=== PATIENT | female | born 1935 | race Caucasian/White ===

== ENCOUNTER 2017-08-31 07:08 | Outpatient (CLI) | payer MEDICARE ==
[~2017-08-31] VITALS: Ht 162.6 cm; Wt 77.3 kg
[~2017-08-31 07:08] MED LIST: BAYER CHEWABLE81 MG PO; BETAPACE 80 MG80 MG PO; CALCIUM 600+D T1 TA1 PO; COZAAR100 MG PO; EFFIENT10 MG PO; FISH OIL 1,2001 CAP PO; IMDUR30 MG PO; LOVENOX80 MG/0.8 SC; NORVASC5 MG PO; PLAVIX75 MG PO; PROVENTIL HFA6.7 GM INH; VITAMIN D31000 UNI2 PO; ZIAC 2.5/6.25 M1 TAB PO; ZIAC 5-6.25 MG1 TAB PO
[2017-08-31 08:33] LABS: BASOPHILS 0.2 % (0-2); EOSINOPHILS 1.2 % (0-7); HEMATOCRIT 38.6 % (36.0-48.0); HEMOGLOBIN 12.7 g/dL (12-16); IMMATURE GRANULOCYTES 0.7 % (0-5); LYMPHOCYTES 15.7 % (15-50); MCH 28.8 pg (26.0-34.0); MCHC 32.9 g/dL (31.0-37.0); MCV 87.5 fL (80.0-100.0); MEAN PLATELET VOLUME 10.1 fL (7.4-10.4); MONOCYTES 7.2 % (2-11); PLATELET COUNT 184 10x3/uL (130-400); RBC 4.41 10x6/uL (4.00-5.40); WBC 9.2 10x3/uL (4.8-10.8)
[2017-08-31] MEDS ORDERED: GLUCOSAMINE & C1 CAP PO (08:33)
[2017-08-31] MEDS ORDERED: PREDNISONE10 MG PO (08:33)
[2017-08-31 08:42] VITALS: BP 126/72; Ht 162.6 cm; Wt 77.3 kg
[2017-08-31 08:50] LABS: ANION GAP 10.5 mmol/L (8-16); CARBON DIOXIDE 29.1 mmol/L (21.0-32.0); CREATININE - SERUM 0.8 mg/dL (0.6-1.3); POTASSIUM - SERUM 3.6 mmol/L (3.5-5.1)
[2017-08-31 08:51] LABS: APTT 23.3 SECONDS (22.8-39.4); INR 1.07 (0.85-1.17); PROTIME 13.5 SECONDS (11.6-15.0)
--- NOTE | 2017-08-31 14:55 | NUR ---
1015--ALL VITAL SIGNS CHARTED ON POST PROCEDURE VITAL SIGN SHEET ON CHART. JACKY FITCH 1400--RADIOLOGY READING ROOM CALLED, PT HAS NO PNEUMO. IV DC'D. JACKY FITCH 1410--DISCHARGE INSTRUCTIONS GIVEN, PT VERBALIZES UNDERSTANDING. PT OFF UNIT VIA WC. JACKY FITCH
== END 2017-08-31 14:15 | disposition home or self-care (01) ==
LOC: D.OPS 07:08
PROVIDERS: Radiology Diagnostic Radiology
DX: C50.411 Malignant neoplasm of upper-outer quadrant of right female breast (principal); Z01.812 Encounter for preprocedural laboratory examination

== ENCOUNTER → 2017-10-28 07:39 | Outpatient (CLI) | payer MEDICARE ==
[2017-08-31 08:42] VITALS: BMI 29.2
[~2017-10-28 07:39] MED LIST changes: +GLUCOSAMINE & C1 CAP PO; +PREDNISONE10 MG PO
== END | disposition home or self-care (01) ==
LOC: D.CT 07:39
DX: C50.411 Malignant neoplasm of upper-outer quadrant of right female breast (principal)

== ENCOUNTER 2017-11-09 05:29 | Outpatient (CLI) | payer MEDICARE ==
[~2017-11-09] VITALS: Ht 162.6 cm; Wt 77.3 kg
[2017-11-09 07:06] VITALS: Ht 162.6 cm; Wt 77.3 kg
[2017-11-09 07:30] LABS: BASOPHILS 0.3 % (0-2); EOSINOPHILS 1.8 % (0-7); HEMATOCRIT 37.1 % (36.0-48.0); HEMOGLOBIN 11.9 g/dL (12-16); IMMATURE GRANULOCYTES 0.5 % (0-5); LYMPHOCYTES 18.3 % (15-50); MCH 28.4 pg (26.0-34.0); MCHC 32.1 g/dL (31.0-37.0); MCV 88.5 fL (80.0-100.0); MEAN PLATELET VOLUME 10.5 fL (7.4-10.4); NEUTROPHILS 72.1 % (40-80); PLATELET COUNT 183 10x3/uL (130-400); RBC 4.19 10x6/uL (4.00-5.40); RDW 14.7 % (11.5-14.5)
[2017-11-09 07:45] LABS: ANION GAP 14.9 mmol/L (8-16); CALCIUM 8.8 mg/dL (8.5-10.1); CARBON DIOXIDE 27.1 mmol/L (21.0-32.0); CREATININE - SERUM 0.8 mg/dL (0.6-1.3)
[2017-11-09 07:50] LABS: INR 1.01 (0.85-1.17); PROTIME 12.9 SECONDS (11.6-15.0)
== END 2017-11-09 13:30 | disposition home or self-care (01) ==
LOC: D.OPS 05:29 → D.SP 08:00 → D.OPS 08:00
PROVIDERS: Radiology Diagnostic Radiology
DX: R91.8 Other nonspecific abnormal finding of lung field (principal); C50.919 Malignant neoplasm of unspecified site of unspecified female breast; Z01.812 Encounter for preprocedural laboratory examination

== ENCOUNTER → 2018-01-30 08:42 | Outpatient (CLI) | payer MEDICARE ==
[2017-11-09 07:06] VITALS: BMI 29.2
== END | disposition home or self-care (01) ==
LOC: D.CT 08:42
DX: C50.511 Malignant neoplasm of lower-outer quadrant of right female breast (principal)

== ENCOUNTER → 2018-09-22 09:31 | Outpatient (CLI) | payer MEDICARE ==
[2017-11-09 07:06] VITALS: BMI 29.2
== END | disposition home or self-care (01) ==
LOC: D.CT 09:31
DX: C50.511 Malignant neoplasm of lower-outer quadrant of right female breast (principal)

== ENCOUNTER → 2019-03-28 15:33 | Outpatient (CLI) | payer MEDICARE ==
[2017-11-09 07:06] VITALS: BMI 29.2
== END | disposition home or self-care (01) ==
LOC: D.RAD 15:33
PROVIDERS: ATTEND Internal Medicine Medical Oncology
DX: C50.511 Malignant neoplasm of lower-outer quadrant of right female breast (principal)

== ENCOUNTER → 2019-06-18 12:12 | Outpatient (CLI) | payer MEDICARE ==
[2017-11-09 07:06] VITALS: BMI 29.2
--- NOTE | 2019-06-28 13:30 | ST ---
PATIENT:FREDY PATEL MEDICAL RECORD: [id number] SEX: F LOCATION:[facility] ORDER #: ADMISSION DATE: 06/18/19 AGE OF PATIENT: 83 REFERRING PHYSICIAN: INTERPRETING PHYSICIAN: KAITLIN ALTAMIRANO MD DATE OF SERVICE: 06/18/2019 PROCEDURE: Nuclear stress test. INDICATIONS: Angina, coronary artery disease, syncope, hypertension, hyperlipidemia. She was exercised on standard Lexiscan protocol with 33 mCi of sestamibi injected at peak stress, 10 mCi used previously for rest images. FINDINGS: Gated SPECT reveals preserved ejection fraction at 74% with good wall motion and thickening and brightening throughout all segments. SPECT imaging: Cardiolite was used as myocardial perfusion agent. There is homogeneous uptake throughout all segments at rest and stress with no evidence of inducible ischemia or previous infarction. OVERALL IMPRESSION: 1. This is a normal nuclear stress test with no evidence of inducible ischemia or previous infarction. 2. Gated SPECT reveals a preserved ejection fraction at 74%. In this patient with ongoing symptomatology, the current scan does not suggest the presence of hemodynamically significant coronary artery disease. Evaluate noncardiac etiology of chest pain. TRANSINT:[id number] Voice Confirmation ID: [id number] DOCUMENT ID: [id number] KAITLIN ALTAMIRANO MD at 1330 CC: SYL MONTES [id number] DICTATION DATE: 06/20/19 1206 PLANE TENDER: 06/21/19 0700 DEP CLI 06/18/19 [facility] [address] [place] [address]
== END | disposition home or self-care (01) ==
LOC: D.HCCARDIO 12:12
PROVIDERS: ATTEND Internal Medicine Interventional Cardiology
DX: I25.10 Atherosclerotic heart disease of native coronary artery without angina pectoris (principal)

== ENCOUNTER → 2019-06-20 12:10 | Outpatient (CLI) | payer MEDICARE ==
[2017-11-09 07:06] VITALS: BMI 29.2
--- NOTE | 2019-06-28 13:30 | EC ---
PATIENT:FREDY PATEL DATE OF SERVICE: 06/20/19 SEX: F MEDICAL RECORD: [id number] DATE OF : 39 LOCATION:[facility] AGE OF PATIENT: 83 ADMISSION DATE: 06/20/19 REFERRING PHYSICIAN: INTERPRETING PHYSICIAN: KAITLIN BRANDON MD ECHOCARDIOGRAM REPORT ECHO CHARGES 4 ECHO COMPLETE Date: 06/20/19 CLINICAL DIAGNOSIS: SYNCOPE/ANGINA H/O CAD/HTN ECHOCARDIOGRAPHIC MEASUREMENTS (adult normal given) AC root (d.<3.7cm) 2.7 cm LV Septum d (<1.2 cm> 1.0 cm Valve Excursion 1.5 cm LV Septum (systole) 1.4 cm Left Atria (s.<4.0cm> 4.5 cm LVPW d(<1.2cm) 0.9 cm RV (d.<2.3cm) 3.4 cm LVPW (sytole) 1.7 cm LV diastole(<5.6CM) 6.3 cm MV E-F(>70mm/sec) cm LV systole 4.0 cm LVOT Diameter 1.6 cm MV exc.(>10mm) cm Est.ejection fraction (50-75%) % DOPPLER: LVIT cm/sec A 112 cm/sec E 78.0 cm/sec LA cm/sec RVSP 51.0 mmHg LVOT 121 cm/sec AOP1/2T m/s Asc. Ao 171 cm/sec RVOT 54.0 cm/sec RA cm/sec PA 109 cm/sec AV Gradient Peak 12.0 mmHg AV Mean 6.0 mmHg AV Area 1.6 cm MV Gradient Peak 6.0 mmHg MV Mean 2.0 mmHg MV Area cm COMMENTS: OP - HC Box Office Manager: Emeterio PENGOE Quality Rep: 1 Dr. Brandon TAPE# PACS Pericardial Effusion N DATE OF SERVICE: 06/20/2019 RESULTS: 1. Left ventricular chamber size is mildly dilated. Left ventricular systolic function is preserved at 55% to 60%. 2. Left atrium is large at 4.5 cm. Right atrium and right ventricle chamber sizes are as well mildly dilated. 3. Valvular structures have normal structure and motion. 4. Doppler interrogation reveals wrfx-tf-ghtyjahq mitral regurgitation, moderate tricuspid regurgitation, no other valvular insufficiency or stenosis. ECHOCARDIOGRAM REPORT [id number] FREDY PATEL Pulmonary systolic pressure is mildly elevated, estimated at 51 mmHg. 5. No evidence of pericardial effusion or left ventricular thrombus. TRANSINT:[id number] Voice Confirmation ID: [id number] DOCUMENT ID: [id number] KAITLIN BRANDON MD at 1330 CC: [id number] DICTATION DATE: 06/20/19 1509 ORE BUYER: 06/20/19 2346 DEP CLI 06/20/19 [id number] [place] [address]
== END | disposition home or self-care (01) ==
LOC: D.HCCECHO 12:10
PROVIDERS: ATTEND Internal Medicine Interventional Cardiology
DX: I25.10 Atherosclerotic heart disease of native coronary artery without angina pectoris (principal)

== ENCOUNTER 2020-12-07 09:20 | Inpatient (IN) | payer MEDICARE ==
[2020-12-07] VITALS (15 sets, daily range): BP systolic 53–150; BP diastolic 31–89; BMI 28.9
[~2020-12-07] VITALS: Ht 162.6 cm; Wt 76.2 kg
[~2020-12-07 09:20] MED LIST changes: -IMDUR30 MG PO; +ISOSORBIDE MONO30 M1 PO
[2020-12-07 09:43] LABS: BASOPHILS 0.1 % (0-2); EOSINOPHILS 1.2 % (0-7); HEMATOCRIT 39.5 % (36.0-48.0); HEMOGLOBIN 13.3 g/dL (12-16); IMMATURE GRANULOCYTES 0.3 % (0-5); LYMPHOCYTE ABS# 0.53 10x3/uL (1.18-3.74); LYMPHOCYTES 6.9 % (15-50); MCH 29.4 pg (26.0-34.0); MCHC 33.7 g/dL (31.0-37.0); MCV 87.2 fL (80.0-100.0); MEAN PLATELET VOLUME 10.5 fL (7.4-10.4); MONOCYTES 8.1 % (2-11); NEUTROPHIL ABS# 6.39 10x3/uL (1.56-6.13); NEUTROPHILS 83.4 % (40-80); PLATELET COUNT 178 10x3/uL (130-400); RBC 4.53 10x6/uL (4.00-5.40); RDW 13.7 % (11.5-14.5); WBC 7.7 10x3/uL (4.8-10.8)
[2020-12-07 09:56] LABS: ANION GAP 10.5 mmol/L (8-16); CALCIUM 9.1 mg/dL (8.5-10.1); CARBON DIOXIDE 28.1 mmol/L (21.0-32.0); CREATININE - SERUM 0.9 mg/dL (0.6-1.3); POTASSIUM - SERUM 3.6 mmol/L (3.5-5.1)
[2020-12-07 10:11] LABS: BILIRUBIN - TOTAL 0.79 mg/dL (0.2-1.3); PROTEIN - SERUM 6.9 g/dL (6.4-8.2)
[2020-12-07 10:17] LABS: TROPONIN-I 0.139 ng/mL (0.000-0.060)
--- NOTE | 2020-12-07 10:17 | NUR ---
CRITICAL TROPONIN OF 0.139 TAKEN FROM BRIGITTE IN LAB AND GIVEN TO PRIMARY NURSE AND DR GARY.
[2020-12-07] MEDS ORDERED: BUMETANIDE0.5 MG PO (10:18)
[2020-12-07] MEDS ORDERED: PLAVIX75 MG PO (10:18)
[2020-12-07] MEDS ORDERED: DILTIAZEM 24HR240 M4 PO (10:19)
[2020-12-07] MEDS ORDERED: PROSCAR5 MG PO (10:20)
[2020-12-07] MEDS ORDERED: FLUTICASONE PRO16 GM NASAL (10:21)
[2020-12-07] MEDS ORDERED: IPRATROPIUM BRO30 M1 NASAL (10:23)
[2020-12-07] MEDS ORDERED: ISOSORBIDE MONO30 M1 PO (10:23)
[2020-12-07] MEDS ORDERED: ALENDRONATE SOD35 MG PO (10:28)
[2020-12-07] MEDS ORDERED: ZIAC 5-6.25 MG1 TAB PO (10:34)
[2020-12-07] MEDS ORDERED: ELIQUIS2.5 MG PO (10:34)
--- NOTE | 2020-12-07 10:57 | NUR ---
DR GARY NOTIFIED THAT PATIENT BP 80/60S. NEW VERBAL ORDER FOR LEVOPHED TO BE GIVEN AND HOLD CARDIZEM. LEVOPHED DRIP BROUGHT TO ROOM. PRIMARY NURSE BOLA TUCKER RN STATES THAT SHE IS RETAKING PRESSURE AND WILL ADMIN MEDICATIONS. LEVOPHED LEFT WITH PRIMARY NURSE.
[2020-12-07 11:16] LABS: BILIRUBIN NEGATIVE (NEGATIVE); KETONE MODERATE mg/dL (NEGATIVE); NITRITE NEGATIVE (NEGATIVE); UROBILINOGEN NORMAL mg/dL (< 2)
[2020-12-07 11:17] LABS: WHITE CELLS - URINE 0-5 HPF (0-4)
[2020-12-07 11:18] LABS: BACTERIA FEW HPF (NONE SEEN); GRANULAR CAST 1 LPF (NONE SEEN)
[2020-12-07 11:38] LABS: CKMB 0.2 U/L (0.0-3.6); CREATINE KINASE 19 UL (21-215)
--- NOTE | 2020-12-07 13:35 | NUR ---
DR. AZALIA GALDAMEZ NOTIFIED BY PHONE OF CONSULT. CURRENT C/O AND TREATMENTS PROVIDED.
--- NOTE | 2020-12-07 13:46 | NUR ---
CALLED TO ICU TO GIVE REPORT. CONSTANTINE NULL, REPORTS THAT NURSE IS NOT AVAILABLE.
--- NOTE | 2020-12-07 15:00 | NUR ---
REPORT CALLED TO [facility].
--- NOTE | 2020-12-07 15:27 | NUR ---
PATIENT TRANSPORTED VIA STRETCHER BY 2 TECHS.
--- NOTE | 2020-12-07 15:50 | NUR ---
RECEIVED PT TO ROOM 212 VIA STRETCHER, PT TRANSFERED TO BED X2 ASSIST. PT A/O X4, A LITTLE SOB FROM EXCERTION, ENCOURAGED HER TO TAKE IN SLOW DEEP BREATHS. CARDIZEM INFUSING AT 10ML/HR TO RT HAND. LT FA IV SL. PLACED HEART MONITOR ON PT, WILL ASSESS AND START PLAN OF CARE.
[2020-12-07 17:51] LABS: CKMB 0.4 U/L (0.0-3.6); CREATINE KINASE 13 UL (21-215)
[2020-12-07 17:52] LABS: TROPONIN-I 0.089 ng/mL (0.000-0.060)
--- NOTE | 2020-12-07 19:33 | NUR ---
PATIENT RESTING IN BED WITH NO S/S OF DISTRESS. ASSISTED PATIENT TO AND FROM RESTROOM. PATIENT SHORT OF BREATH AFTER GETTING UP TO RESTROOM. PATIENT'S O2 TURNED UP TO 4.5L. PATIENT DENIES OTHER NEEDS AT THIS TIME. BED IN LOWEST POSITION AND CALL LIGHT IN REACH. ENCOURAGED PATIENT TO CALL WITH NEEDS.
--- NOTE | 2020-12-07 20:15 | NUR ---
ADMINISTERED MEDS PER ORDERS. PATIENT SADIQ WELL. ENCOURAGED PATIENT TO CALL WITH NEEDS.
[2020-12-07 23:33] LABS: CKMB 0.3 U/L (0.0-3.6); CREATINE KINASE 11 UL (21-215)
[2020-12-07 23:34] LABS: TROPONIN-I 0.089 ng/mL (0.000-0.060)
--- NOTE | 2020-12-08 00:16 | NUR ---
PT AWAKE, C/O SOB. AUSCULTATE MILD WHEEZING. SPOKE WITH RT. PT IS IN UCAF 110-130'S AND WILL NEED A CHANGE IN UPDRAFTS. PAGE TO ELISA REYES APN AND ORDERS RECIEVED TO D/C ALBUTERAL AND START ON XOPENEX TREATMENTS FOR WHEEZING/SOB.
[2020-12-08 00:30] VITALS: BP 149/77
--- NOTE | 2020-12-08 01:40 | NUR ---
PATIENT O2 SAT 89% ON 4.5L. RT INCREASED O2 TO 6L, PATIENT O2 SAT 93%.
--- NOTE | 2020-12-08 01:44 | NUR ---
0140 PT SPO2 89 INCREASED F102 45% IN ATTEMPT TO TITRATE SPO2 TO 92 PERCENT CURRENTLY 93% AND HOLDING NURSE NOTIFIED
--- NOTE | 2020-12-08 03:23 | NUR ---
NOTIFIED BY Buck Mason, PATIENT 80 SR
[2020-12-08 03:27] VITALS: BP 124/64
[2020-12-08 05:27] LABS: BASOPHILS 0.1 % (0-2); EOSINOPHILS 0.9 % (0-7); HEMATOCRIT 34.2 % (36.0-48.0); HEMOGLOBIN 11.2 g/dL (12-16); IMMATURE GRANULOCYTES 0.6 % (0-5); LYMPHOCYTE ABS# 0.86 10x3/uL (1.18-3.74); LYMPHOCYTES 12.3 % (15-50); MCH 28.9 pg (26.0-34.0); MCHC 32.7 g/dL (31.0-37.0); MCV 88.1 fL (80.0-100.0); MEAN PLATELET VOLUME 10.3 fL (7.4-10.4); MONOCYTES 9.7 % (2-11); NEUTROPHIL ABS# 5.35 10x3/uL (1.56-6.13); NEUTROPHILS 76.4 % (40-80); PLATELET COUNT 197 10x3/uL (130-400); RBC 3.88 10x6/uL (4.00-5.40)
[2020-12-08 06:00] LABS: ALBUMIN 2.3 g/dL (3.4-5.0); ANION GAP 12.4 mmol/L (8-16); BILIRUBIN - TOTAL 0.56 mg/dL (0.2-1.3); CALCIUM 7.4 mg/dL (8.5-10.1); CARBON DIOXIDE 24.2 mmol/L (21.0-32.0); CREATININE - SERUM 0.8 mg/dL (0.6-1.3); POTASSIUM - SERUM 3.6 mmol/L (3.5-5.1); PROTEIN - SERUM 5.8 g/dL (6.4-8.2)
[2020-12-08 08:00] VITALS: BP 140/60
--- NOTE | 2020-12-08 08:47 | NUR ---
AM MEDS GIVEN AT THIS TIME. PT A LITTLE SOB ON 6L, O2 IS 93%. REPOSITIONED PT IN BED, AND ENCOURAGED HER TO TAKE DEEP BREATHS, PT ASKING IF SHE CAN HAVE A BREATHING TREATMENT. WILL CALL [facility]O RESP THERAPIST. RT HAND IV INFUSING CARDIZEM AT 10ML/HR AND LT FA IV SL. PT DENIES ANY OTHER NEEDS AT THIS TIME. CALL LIGHT IN REACH, WILL CONTINUE PLAN OF CARE.
[2020-12-08 12:08] VITALS: BP 106/63
[2020-12-08 13:08] VITALS: BMI 28.8
--- NOTE | 2020-12-08 14:46 | NUR ---
PT WENT BACK INTO AFIB. PT UP TO CHAIR, DENIES ANY NEEDS AT THIS TIME. FAMILY AT BEDSIDE, CALL LIGHT IN REACH.
[2020-12-08 15:00] VITALS: BP 105/77
[2020-12-08 20:05] VITALS: BP 132/77
--- NOTE | 2020-12-08 20:11 | NUR ---
RECIEVED UP IN BED WITH EYES OPEN. ALERT AND ORIETNED AND REQUIRES ASSIST WITH AMBULATION. O2 @ 6 LITERS PER N/C. IV TO RT HAND WITH NS AT 30CC/HR AND CARDIZEM AT 10CC/HR. TELEMETRY IN PLACE. DENIES ANY NEEDS AT THIS TIME.
[2020-12-09 00:29] VITALS: BP 119/61
[2020-12-09 05:25] LABS: BASOPHILS 0.1 % (0-2); EOSINOPHILS 2.4 % (0-7); HEMATOCRIT 32.2 % (36.0-48.0); HEMOGLOBIN 10.5 g/dL (12-16); IMMATURE GRANULOCYTES 0.6 % (0-5); LYMPHOCYTES 14.2 % (15-50); MCH 28.4 pg (26.0-34.0); MCHC 32.6 g/dL (31.0-37.0); MEAN PLATELET VOLUME 10.2 fL (7.4-10.4); MONOCYTES 11.8 % (2-11); NEUTROPHIL ABS# 4.99 10x3/uL (1.56-6.13); NEUTROPHILS 70.9 % (40-80); PLATELET COUNT 203 10x3/uL (130-400); RDW 13.9 % (11.5-14.5)
[2020-12-09 06:00] LABS: ALBUMIN 2.1 g/dL (3.4-5.0); ALKALINE PHOSPHATASE 51 U/L (30-120); ALT (SGPT) 18 U/L (10-68); BILIRUBIN - TOTAL 0.44 mg/dL (0.2-1.3); CALC OSMOLALITY 269 mosm/kg (275-300); CALCIUM 7.2 mg/dL (8.5-10.1); CARBON DIOXIDE 22.6 mmol/L (21.0-32.0); CHLORIDE - SERUM 102 mmol/L (98-107); CREATININE - SERUM 0.6 mg/dL (0.6-1.3); GLUCOSE 111 mg/dL (74-106); MAGNESIUM - SERUM 1.5 mg/dL (1.8-2.4); POTASSIUM - SERUM 3.5 mmol/L (3.5-5.1); PROTEIN - SERUM 5.5 g/dL (6.4-8.2); SODIUM 135 mmol/L (136-145); UREA NITROGEN 10 mg/dL (7-18); eGFR NON AFRICAN AMERICAN > 90 mL/min (90-120)
[2020-12-09 08:39] VITALS: BP 121/64
[2020-12-09 10:42] VITALS: Ht 162.6 cm; Wt 76.2 kg
[2020-12-09 12:06] VITALS: BP 149/78
[2020-12-09 15:00] VITALS: BP 133/56
--- NOTE | 2020-12-09 19:26 | NUR ---
RECIEVED UP IN BED TALKING ON TELEPHONE. ALERT AND ORIENTED X4. UP WITH ASSIST. BED ALARM IN PLACE. O2@ 6 LITERS PER N/C. RESP EVEN AND UNLABORED. IV TO RT FA WITH NS AT 50CC/HR. DENIES ANY NEEDS AT THIS TIME.
--- NOTE | 2020-12-09 20:56 | NUR ---
APICAL HR 132 AND IRREGU;AR
[2020-12-09 21:17] VITALS: BP 121/67
[2020-12-10 01:46] VITALS: BP 142/76
[2020-12-10 05:09] LABS: BASOPHILS 0.2 % (0-2); EOSINOPHILS 2.9 % (0-7); HEMATOCRIT 33.6 % (36.0-48.0); IMMATURE GRANULOCYTES 0.2 % (0-5); LYMPHOCYTES 18.3 % (15-50); MCH 28.4 pg (26.0-34.0); MCHC 32.7 g/dL (31.0-37.0); MCV 86.8 fL (80.0-100.0); MEAN PLATELET VOLUME 9.8 fL (7.4-10.4); MONOCYTES 11.4 % (2-11); NEUTROPHIL ABS# 4.41 10x3/uL (1.56-6.13); PLATELET COUNT 224 10x3/uL (130-400); RBC 3.87 10x6/uL (4.00-5.40); RDW 13.6 % (11.5-14.5); WBC 6.6 10x3/uL (4.8-10.8)
[2020-12-10 05:27] LABS: ALBUMIN 2.1 g/dL (3.4-5.0); ALKALINE PHOSPHATASE 51 U/L (30-120); ALT (SGPT) 19 U/L (10-68); BILIRUBIN - TOTAL 0.39 mg/dL (0.2-1.3); CALC OSMOLALITY 273 mosm/kg (275-300); CALCIUM 7.4 mg/dL (8.5-10.1); CHLORIDE - SERUM 104 mmol/L (98-107); CREATININE - SERUM 0.6 mg/dL (0.6-1.3); GLUCOSE 106 mg/dL (74-106); MAGNESIUM - SERUM 1.3 mg/dL (1.8-2.4); POTASSIUM - SERUM 3.6 mmol/L (3.5-5.1); PROTEIN - SERUM 5.5 g/dL (6.4-8.2); SODIUM 138 mmol/L (136-145); UREA NITROGEN 8 mg/dL (7-18); eGFR NON AFRICAN AMERICAN > 90 mL/min (90-120)
[2020-12-10 05:40] VITALS: BP 141/79
[2020-12-10 07:54] VITALS: BP 141/83
[2020-12-10 11:32] VITALS: BP 140/78
[2020-12-10 15:59] VITALS: BP 136/63
--- NOTE | 2020-12-10 16:14 | NUR ---
CONVERTED TO NSR.
--- NOTE | 2020-12-10 19:29 | NUR ---
RECIEVED BEDSIDE SHIFT REPORT. ALERT AND ORIETNED X4. UP AD AURROA TO B/R. REMAINS ON 6 LITERS VIA HF CANNULA. IV TO RT FA WITH NS AT 50CC/HR. HAS A DRY COUGH. DENIES ANY NEEDS AT THIS TIME.
[2020-12-11 01:08] VITALS: BP 105/68
--- NOTE | 2020-12-11 04:31 | NUR ---
ATTEMPTED TO SEND STOOL TO LAB. WAS TOLD IT WAS NOT LIQUID ENOUGH.
[2020-12-11 05:33] VITALS: BP 140/62
[2020-12-11 05:34] LABS: BASOPHILS 0.3 % (0-2); EOSINOPHILS 1.1 % (0-7); HEMOGLOBIN 11.3 g/dL (12-16); IMMATURE GRANULOCYTES 0.3 % (0-5); LYMPHOCYTE ABS# 1.48 10x3/uL (1.18-3.74); LYMPHOCYTES 22.3 % (15-50); MCHC 33.2 g/dL (31.0-37.0); MCV 87.2 fL (80.0-100.0); MEAN PLATELET VOLUME 9.7 fL (7.4-10.4); MONOCYTES 10.3 % (2-11); NEUTROPHIL ABS# 4.36 10x3/uL (1.56-6.13); NEUTROPHILS 65.7 % (40-80); PLATELET COUNT 266 10x3/uL (130-400); RDW 13.7 % (11.5-14.5); WBC 6.6 10x3/uL (4.8-10.8)
[2020-12-11 06:07] LABS: ALBUMIN 2.3 g/dL (3.4-5.0); ALKALINE PHOSPHATASE 52 U/L (30-120); ALT (SGPT) 17 U/L (10-68); BILIRUBIN - TOTAL 0.45 mg/dL (0.2-1.3); CALC OSMOLALITY 270 mosm/kg (275-300); CALCIUM 7.7 mg/dL (8.5-10.1); CARBON DIOXIDE 29.9 mmol/L (21.0-32.0); CHLORIDE - SERUM 103 mmol/L (98-107); CREATININE - SERUM 0.6 mg/dL (0.6-1.3); GLUCOSE 94 mg/dL (74-106); MAGNESIUM - SERUM 1.8 mg/dL (1.8-2.4); POTASSIUM - SERUM 3.7 mmol/L (3.5-5.1); PROTEIN - SERUM 5.9 g/dL (6.4-8.2); SODIUM 137 mmol/L (136-145); eGFR NON AFRICAN AMERICAN > 90 mL/min (90-120)
[2020-12-11 06:12] LABS: UREA NITROGEN 5 mg/dL (7-18)
[2020-12-11 08:18] VITALS: BP 143/94
--- NOTE | 2020-12-11 10:37 | NUR ---
PULSE OX 96% ON 6LNC. DROPPED TO 5LITERS, TRYING TO WEAN TO 4 LITERS.
[2020-12-11 11:46] VITALS: BP 117/61
[2020-12-11] MEDS ORDERED: DILTIAZEM 24HR120 M3 PO (11:52)
[2020-12-11] MEDS ORDERED: FUROSEMIDE20 MG PO (11:53)
[2020-12-11] MEDS ORDERED: K-TAB10 MEQ PO (11:54)
[2020-12-11] MEDS ORDERED: CIPRO500 MG PO (11:55)
--- NOTE | 2020-12-11 12:25 | NUR ---
Nutrition Follow-up: Pt reports improvement in PO intake; ate ~25% of breakfast. C/o nausea; received Zofran this AM. Loose BMs. Declines nutrition supplements. Noted plans to d/c today. Diet: Cardiac PO intake: 25-50% No new wt; last wt: 168# (12/08) Labs noted: Ca 7.7, Alb 2.3 Meds noted: Lasix, Micro K, Oscal D, Protonix, Zofran, NS @ 50, electrolyte protocol -Encourage PO intake and honor food preferences within diet restrictions. -Need new wt. -RD follow-up: 12/15
--- NOTE | 2020-12-11 14:15 | NUR ---
DISCHARGE INSTRUCTIONS REVIEWED AND SIGNED. IV OUT, TELEMETRY REMOVED. AT BEDSIDE ALSO.
--- NOTE | 2020-12-13 16:20 | MORECARE ---
CASE MANAGEMENT DISCHARGE SUMMARY PATIENT: FREDY PATEL UNIT: [id number] ADM DATE: 12/07/20 AGE: 85 : 37 SEX: F ROOM/BED: D.2120 AUTHOR: LITZY,DOC PHYSICIAN: REFERRING PHYSICIAN: JAN FAIRCHILD MD DATE OF SERVICE: 12/13/20 Case Management Discharge Planning Summary CT Patient Name: FREDY PATEL Attending MD : GOLD- Medical Record: [id number] Encounter : [id number] Facility : [address] [place] [address] Admission Date : 112: Center Discharge Date : 12/11/[address] [place] [address] Date of : DC Plan ID : [id number] Age/Sex/Martia : 85/ F/M Printed on : 12/13/20 16:18 CT DCP Review Details Anticipated D/C: Expected LOS : Case Status : COMPLET - Initial Reviewe: [id number] Marichuy Lepe Initial Review: 12/13/2020 Planned Disposi: - Final Discharge: - Home or Self Care (Routine Discharge) Final Reviewer : LINNETTE : Shweta Lepe Final Review : 12/13/2020 DCP [facility] FREDY PATEL MR#: [id number] /Age/Sex/Kkicts99-Fog-45 /85/F /M Attending Physician Name: [id number] Patient Account:[id number] [facility] Page -1 of 1 All edits/amendments must be made on the electronic document DICTATION DATE: 12/13/201617 EQUIPMENT OPERAT0R: DM 12/13/20 161 RPT#: [id number] DC DATE:12/11/20 STATUS: [place] [address] END OF REPORT
--- NOTE | 2020-12-15 12:37 | MORECARE ---
CASE MANAGEMENT DISCHARGE SUMMARY PATIENT: FREDY PATEL UNIT: [id number] ADM DATE: 12/07/20 AGE: 85 : 37 SEX: F ROOM/BED: D.2120 AUTHOR: LITZY,DOC PHYSICIAN: REFERRING PHYSICIAN: JAN FAIRCHILD MD DATE OF SERVICE: 12/15/20 Case Management Discharge Planning Summary CT Patient Name: FRDEY PATEL Attending MD : GOLD- Medical Record: [id number] Encounter : [id number] Facility : [address] [place] [address] Admission Date : 112: Center Discharge Date : 12/11/[address] [place] [address] Date of : DC Plan ID : [id number] Age/Sex/Martia : 85/ F/M Printed on : 12/15/20 12:36 CT DCP Review Details Anticipated D/C: Expected LOS : Case Status : COMPLET - Initial Reviewe: [id number] Marichuy Lepe Initial Review: 12/13/2020 Planned Disposi: - Final Discharge: - Home or Self Care (Routine Discharge) Final Reviewer : LINNETTE : Shweta Lepe Final Review : 12/13/2020 DCP [facility] FREDY PATEL MR#: [id number] /Age/Sex/Wefysh28-Feg-53 /85/F /M Attending Physician Name: [id number] Patient Account:[id number] [facility] Page -1 of 1 All edits/amendments must be made on the electronic document DICTATION DATE: 12/15/20 1235 METAL SANDER AND FINISHER: DM 12/15/20 1235 RPT#: [id number] DC DATE:12/11/20 STATUS: [place] [address] END OF REPORT
== END 2020-12-11 14:40 | disposition home health service (06) | DRG 690 ==
LOC: D.ER 09:20 → D.ICU 12:50 → D.M2 12:50
PROVIDERS: Family Medicine; ADMIT Family Medicine; ATTEND Family Medicine
DX: N39.0 Urinary tract infection, site not specified (principal); E87.1 Hypo-osmolality and hyponatremia; I95.9 Hypotension, unspecified; I48.91 Unspecified atrial fibrillation; E83.42 Hypomagnesemia; Z79.01 Long term (current) use of anticoagulants; I10 Essential (primary) hypertension; E78.5 Hyperlipidemia, unspecified; I25.10 Atherosclerotic heart disease of native coronary artery without angina pectoris; Z85.3 Personal history of malignant neoplasm of breast; M19.90 Unspecified osteoarthritis, unspecified site; I34.0 Nonrheumatic mitral (valve) insufficiency